=== PATIENT | female | born 1950 | race Caucasian/White ===

== ENCOUNTER 2017-09-30 09:25 | Observation (INO) ==
[2017-09-30] MEDS ORDERED: Aspirin 81 MG TAB.CHEW PO ONE (09:29)
[2017-09-30] MEDS ORDERED: methylPREDNISolone 125 MG/2 ML VIAL IVP ONE (09:33)
[2017-09-30] MEDS ORDERED: Ipratropium/Albuterol Neb 3 ML IH ONE (09:33)
--- NOTE | 2017-09-30 09:37 | Emergency Department Note ---
Disposition Clinical Impression: COPD exacerbation Chest pain Qualifiers: Chest pain type: unspecified Qualified Code(s): R07.9 - Chest pain, unspecified Disposition: Admitted As Inpatient Condition: Fair Referrals: Marixa Hale CNP [Primary Care Provider] - Forms: ED Satisfaction Letter Time of Disposition: 10:33 Chest Pain HPI - General Chief Complaint: ED Chest Pain Stated Complaint: chest pain Time Seen by Provider: 09/30/17 09:29 Source: patient Mode of arrival: ambulatory Limitations: no limitations Vital Signs Reviewed: Yes Nursing Notes Reviewed: Yes - History of Present Illness HPI Narrative: 67-year-old female history COPD comes in complaining of chest pain with pressure in her chest for the last couple of days. Also states she's had some shortness of breath she took prednisone and breathing treatment at home without improvement. Pt complaint: chest pain Onset (ago): day(s) Duration: intermittent Onset: during rest Pain Location: substernal, left chest Severity: moderate Severity scale (1-10): 9 Quality: tightness, aching, heaviness Pain Radiation: none Worsens with: exertion Context: recent illness Associated symptoms: Reports: dyspnea Treatments prior to arrival chest pain: none - Related Data Home Medications Medication Instructions Recorded Confirmed Albuterol Neb [Proventil Neb] 2.5 mg IH Q4HR 08/26/16 11/06/16 Albuterol Sulfate [Proair Hfa] 1 - 2 puff IH Q4H PRN 08/26/16 11/06/16 Aspirin [Lo-Dose Aspirin EC] 81 mg PO DAILY 08/26/16 11/06/16 Citalopram Hydrobromide [Celexa] 20 mg PO DAILY 08/26/16 11/06/16 Losartan [Cozaar] 25 mg PO QPM 08/26/16 11/06/16 Metoprolol [Lopressor] 25 mg PO BID 08/26/16 11/06/16 Oxygen 2 l NS AD 08/26/16 11/06/16 Pantoprazole Sodium [Protonix] 40 mg PO QPM 08/26/16 11/06/16 Simvastatin [Zocor] 20 mg PO QPM 08/26/16 11/06/16 Gabapentin [Neurontin] 300 mg PO HS 11/06/16 11/06/16 Sucralfate [Carafate] 1 gm PO BID 11/06/16 11/06/16 Allergies Allergy/AdvReac Type Severity Reaction Status Date / Time Bee Pollen Allergy Anaphylaxis Verified 09/30/17 09:29 mushroom Allergy Anaphylaxis Verified 09/30/17 09:29 Penicillins [PCN] Allergy Swelling Verified 09/30/17 09:29 of Lip/Tongue/Throat Tomato Allergy Anaphylaxis Verified 09/30/17 09:29 All systems ED: reviewed and negative except as stated. Constitutional: Denies: fever, chills, weakness, weight change Eyes: Denies: eye pain, eye discharge, vision change ENT ED: Denies: ear pain, throat pain, dental pain, hearing loss, epistaxis, congestion, dysphagia Cardiovascular: Reports: chest pain. Denies: palpitations, dyspnea on exertion , edema, syncope Respiratory: Reports: cough, dyspnea, wheezes. Denies: hemoptysis, stridor Gastrointestinal: Denies: abdominal pain, nausea, vomiting, diarrhea, constipation, hematemesis, melena, hematochezia Genitourinary: Denies: dysuria, frequency, hematuria, discharge Musculoskeletal: Denies: back pain, neck pain, arthralgia, myalgia Integumentary: Denies: rash, abrasion, lesions Neurological: Denies: headache, weakness, numbness, paresthesias, confusion, abnormal gait, vertigo Psychiatric: Denies: anxiety, depression, suicidal thoughts, homicidal thoughts , auditory hallucinations, visual hallucinations Endocrine: Denies: fatigue Hematological/Lymphatic: Denies: easy bleeding, easy bruising Allergic/Immunologic: Denies: facial swelling, urticaria Chest Pain PMH - Past Medical History Medical history: Reports: COPD, coronary artery disease, hyperlipidemia, hypertension, kidney stones, other Surgical history: Reports: other Psychiatric history: Reports: anxiety, depression - Social History Smoking Status: Current every day smoker Alcohol use: Reports: none Drug use: Reports: marijuana Physical Exam - General Limitations: no limitations General appearance: alert, in no apparent distress - Head Head exam: atraumatic, normocephalic, normal inspection - Eye Eye exam: Present: normal appearance, PERRL, EOMI - ENT ENT exam: normal exam, normal oropharynx, mucous membranes moist - Neck Neck exam: Present: normal inspection, full ROM, trachea midline - Chest Chest inspection: Present: normal inspection, symmetric chest wall rise - Respiratory Respiratory exam: Present: wheezes, accessory muscle use, prolonged expiratory phase - Cardiovascular Cardiovascular exam: Present: regular rate, normal rhythm, normal heart sounds - Abdominal Exam Abdominal exam: Present: soft, Non-Tender. Absent: tenderness, distention, guarding, rebound, rigidity - Extremities Exam Extremities exam: Present: normal inspection, full ROM. Absent: tenderness, pedal edema - Expanded Lower Extremity Exam Neurovascular/Tendon exam: Absent: motor deficit, sensory deficit, tendon deficit Gait: observed and normal - Back Exam Back exam: Present: normal inspection, full ROM. Absent: tenderness - Neurological Exam Neurological exam: Present: alert, oriented X3 - Psychiatric Psychiatric exam: Present: normal affect, normal mood - Skin Skin exam: Present: warm, dry, intact, normal color Course - Reevaluation(s) Reevaluation #1: 67-year-old with a history of COPD comes in with chest pain and some difficulty breathing. Initial EKG shows nonspecific changes and PVCs. Initial troponin is negative. Patient will be admitted for rule out and COPD exacerbation. Time: 10:13 - Consultations Consultation #1: Discussed with Dr. Reyna, admit. Time: 10:33 Vital Signs Temperature 98.4 F 09/30/17 09:25 Pulse Rate 58 09/30/17 09:25 Respiratory Rate 18 09/30/17 09:25 Blood Pressure 138/68 09/30/17 09:25 O2 Sat by Pulse Oximetry 99 09/30/17 09:25 Temperature 98.4 F 09/30/17 09:25 Pulse Rate 70 09/30/17 09:58 Respiratory Rate 18 09/30/17 09:58 Blood Pressure 159/76 09/30/17 09:58 O2 Sat by Pulse Oximetry 98 09/30/17 09:58 Oxygen Delivery Oxygen Delivery Room Air Chest Pain - Lab Data Result diagrams: 09/30/17 09:43 09/30/17 09:43 Lab Results 09/30/17 09/30/17 09/30/17 Range/Units 09:43 09:43 09:43 WBC 11.6 H (4.3-11.1) K/mcL RBC 5.11 H (3.82-4.97) M/mcL Hgb 14.0 (11.5-15.4) g/dL Hct 44.9 (35.3-44.9) % MCV 87.9 (83.0-100.0) fL MCH 27.4 L (28.0-33.3) pg MCHC 31.2 L (31.6-35.5) g/dL RDW 14.7 H (11.5-14.5) % Plt Count 307 (140-400) K/mcL MPV 9.1 L (9.4-12.4) fL Immature Gran % 0.3 (0-4) % Seg Neutrophils % 57.4 % Lymphocytes % 35.3 % Monocytes % 5.5 % Eosinophils % 1.0 % Basophils % 0.5 % Neutrophils # 6.6 (1.6-8.9) K/mcL Lymphocytes # 4.1 (0.6-4.6) K/mcL Monocytes # 0.6 (0.0-1.3) K/mcL Eosinophils # 0.1 (0.0-0.6) K/mcL Basophils # 0.1 (0.0-0.2) K/mcL Nucleated RBCs/100 WBC 0.2 H (0) /100 WBC PT 10.3 (9.4-12.1) Seconds INR 1.0 APTT 27.5 (26.0-36.0) Seconds Sodium 136 (136-145) mEq/L Potassium 4.0 (3.5-5.1) mEq/L Chloride 106 (98-107) mEq/L Carbon Dioxide 27 (23-29) mEq/L BUN 15 (8-23) mg/dL Creatinine 0.90 (0.60-1.20) mg/dL Est GFR ( Amer) > 60 (> 60) Est GFR (Non-Af Amer) > 60 (> 60) BUN/Creatinine Ratio 17 (6-26) Glucose 108 H (70-105) mg/dL Calculated Osmolality 283 (280-300) Lactic Acid (0.5-2.2) mmol/L Calcium 9.1 (8.6-10.3) mg/dL Troponin I (< 0.04) ng/mL 09/30/17 09/30/17 Range/Units 09:43 09:43 WBC (4.3-11.1) K/mcL RBC (3.82-4.97) M/mcL Hgb (11.5-15.4) g/dL Hct (35.3-44.9) % MCV (83.0-100.0) fL MCH (28.0-33.3) pg MCHC (31.6-35.5) g/dL RDW (11.5-14.5) % Plt Count (140-400) K/mcL MPV (9.4-12.4) fL Immature Gran % (0-4) % Seg Neutrophils % % Lymphocytes % % Monocytes % % Eosinophils % % Basophils % % Neutrophils # (1.6-8.9) K/mcL Lymphocytes # (0.6-4.6) K/mcL Monocytes # (0.0-1.3) K/mcL Eosinophils # (0.0-0.6) K/mcL Basophils # (0.0-0.2) K/mcL Nucleated RBCs/100 WBC (0) /100 WBC PT (9.4-12.1) Seconds INR APTT (26.0-36.0) Seconds Sodium (136-145) mEq/L Potassium (3.5-5.1) mEq/L Chloride (98-107) mEq/L Carbon Dioxide (23-29) mEq/L BUN (8-23) mg/dL Creatinine (0.60-1.20) mg/dL Est GFR ( Amer) (> 60) Est GFR (Non-Af Amer) (> 60) BUN/Creatinine Ratio (6-26) Glucose (70-105) mg/dL Calculated Osmolality (280-300) Lactic Acid 1.8 (0.5-2.2) mmol/L Calcium (8.6-10.3) mg/dL Troponin I < 0.03 (< 0.04) ng/mL - EKG Data EKG attestation: Yes I reviewed and interpreted this EKG. EKG shows normal: sinus rhythm Rhythm: NSR, PVC's [place]/QRS: normal Interpretation: nonspecific ST-T wave changes Heart Score - Score History: Slightly Suspicious EKG: Non Specific repolarisation Disturbance Age: 45-65 Risk Factors: Equal/Greater than 3 risk factor or history of atherosclerotic disease Troponin: Less than normal limit HEART Score Total: 4
[2017-09-30 09:54] LABS: Basophils # 0.1 K/mcL (0.0-0.2); Basophils % 0.5 %; Eosinophils # 0.1 K/mcL (0.0-0.6); Hematocrit 44.9 % (35.3-44.9); Immature Granulocytes % 0.3 % (0-4); Lymphocytes # 4.1 K/mcL (0.6-4.6); Lymphocytes % 35.3 %; Mean Corpuscular HGB Conc 31.2 g/dL (31.6-35.5); Mean Corpuscular Hemoglobin 27.4 pg (28.0-33.3); Mean Corpuscular Volume 87.9 fL (83.0-100.0); Mean Platelet Volume 9.1 fL (9.4-12.4); Monocytes # 0.6 K/mcL (0.0-1.3); Monocytes % 5.5 %; Neutrophils # 6.6 K/mcL (1.6-8.9); Nucleated Red Blood Cells 0.2 /100 WBC (0); Platelet Count 307 K/mcL (140-400); Red Blood Count 5.11 M/mcL (3.82-4.97); Red Cell Distribution Width 14.7 % (11.5-14.5); Segmented Neutrophils % 57.4 %
[2017-09-30 09:58] LABS: Prothrombin Time 10.3 Seconds (9.4-12.1)
[2017-09-30 10:00] LABS: Activated Partial Thrombo Time 27.5 Seconds (26.0-36.0)
[2017-09-30 10:07] LABS: BUN/Creatinine Ratio 17 (6-26); Blood Urea Nitrogen 15 mg/dL (8-23); Calcium 9.1 mg/dL (8.6-10.3); Carbon Dioxide 27 mEq/L (23-29); Chloride 106 mEq/L (98-107); Glucose 108 mg/dL (70-105); Osmolality,Calculated 283 (280-300); Sodium 136 mEq/L (136-145); eGFR For African Americans > 60 (> 60); eGFR For Non-African Americans > 60 (> 60)
[2017-09-30] MEDS ORDERED: Ondansetron 4 MG/2 ML VIAL IVP PRN (13:02)
[2017-09-30] MEDS ORDERED: Acetaminophen 325 MG TABLET PO PRN (13:02)
[2017-09-30] MEDS ORDERED: Naloxone 0.4 MG/ML INJ IVP PRN (13:02)
--- NOTE | 2017-09-30 13:25 | Internal Med History&Physical ---
<Sandra Gabriel - Last Filed: 09/30/17 13:51> Date of Encounter: 09/30/17 Time of Encounter: 13:12 Assessment and Plan (1) Chest pain Status: Acute Chest pain - Has history of CAD and risk factor for CAD including hypertension and hyperlipidemia. - Symptoms not typical for CAD. - Troponins negative 1 and EKG without acute ST-T change. Chest x-ray is normal. - Low risk for ACS. - We will continue trending troponin for 3 more sets. EKG as needed. Telemetry monitoring. - If everything continues to be normal, expect to be discharged in the morning. Qualifiers: Chest pain type: unspecified Qualified Code(s): R07.9 - Chest pain, unspecified (2) Acute bronchitis Status: Acute Acute bronchitis - History of smoking and COPD. - Cough with white mucus. - Symptoms typical for acute bronchitis. - Will add Zithromaz. Sputum culture. Qualifiers: Bronchitis organism: unspecified organism Qualified Code(s): J20.9 - Acute bronchitis, unspecified (3) CAD (coronary artery disease) Status: Chronic CAD - Stable at this time - Continue current treatment for hypertension and hyperlipidemia. Qualifiers: Coronary Disease-Associated Artery/Lesion type: circle artery [place] vs. transplanted heart: circle heart Associated angina: with stable angina Qualified Code(s): I25.118 - Atherosclerotic heart disease of circle coronary artery with other forms of angina pectoris (4) HTN (hypertension) Status: Chronic Hypertension - Stable, continue current treatment Qualifiers: Hypertension type: essential hypertension Qualified Code(s): I10 - Essential (primary) hypertension (5) Hyperlipidemia Status: Acute Stable. Continue current treatment. Qualifiers: Hyperlipidemia type: pure hypercholesterolemia Qualified Code(s): E78.00 - Pure hypercholesterolemia, unspecified; E78.0 - Pure hypercholesterolemia (6) COPD exacerbation Status: Chronic - Stable continue home medicine. Internal Medicine - H&P: HPI Admitted From: Emergency Dept Plans for Post Hospital Care: Home History of present illness: Ms. Marcelo is a 67 year old female who has past medical history significant for hypertension, coronary artery disease, HLP, COPD who presents with chest pain with cough for 2 days. She was on her usual health state until 2 days ago, she experienced gradual onset chest pain, she states that her chest pains are located on the precordial area with radiation to the left arm and left jaw. pAIN was worsened by exertion and relieved by rest. She rated 5 out of 10. She also has associated cough with white mucus. she denies fever or night sweats. No headache, dizziness, weakness. She denies abdominal pain but admitted nausea and vomiting occasionally. she denies dysuria, frequency, or urgency. At ED, vital signs were stable. Laboratory results revealed mild leukocytosis and a slightly elevated glucose. EKG is unremarkable and a chest x-ray was normal upon report. She received breathing treatment in the ED and she reports her symptoms has relieved. She does have past medical history lives CAD hypertension and COPD she does compliant with his treatment she also has primary care physician and registered nurse cardiovascular icu whom she is sedated regularly to follow follow-up. with. Review of systems Gen: the patient complained fatigue. But no weight loss OR change HEENT: she denies vision or hearing change. Cardiovascular: She does have chest chest pressure and discomfort no palpitation .see history of present illness . Respiratory: Denies hemoptysis . See history of present illness Gastro-intestinal: no bloody stool. See history of present illness. : See history of present illness. Neurological: see history of present illness Past Med Surg Social Fam HX - Past Medical History Medical history: COPD, coronary artery disease, hyperlipidemia, hypertension, kidney stones, other Psychiatric history: anxiety, depression - Past Surgical History Surgical History: vascular surgery - Social History Smoking Status: Current every day smoker Packs per day: 1 Smokeless Tobacco Status: No Alcohol use: none Drug use: none - Family History Mother Living Status: Age at : 84 Cause of : respiratory Hx Family Cardiac Disorders: No Hx Family Respiratory Disorders: Yes Internal Medicine - H&P: Meds Albuterol Neb [Proventil Neb] 2.5 mg IH Q4HR 08/26/16 [History] Albuterol Sulfate [Proair Hfa] 1 - 2 puff IH Q4H PRN 08/26/16 [History] Aspirin [Lo-Dose Aspirin EC] 81 mg PO DAILY 08/26/16 [History] Losartan [Cozaar] 25 mg PO QPM 08/26/16 [History] Metoprolol [Lopressor] 25 mg PO BID 08/26/16 [History] Oxygen 2 l NS AD 08/26/16 [History] Pantoprazole Sodium [Protonix] 40 mg PO QPM 08/26/16 [History] Simvastatin [Zocor] 20 mg PO QPM 08/26/16 [History] Gabapentin [Neurontin] 300 mg PO HS 11/06/16 [History] Citalopram Hydrobromide [Celexa] 40 mg PO DAILY 09/30/17 [History] Tiotropium [Spiriva] 1 puff IH DAILY 09/30/17 [History] Azithromycin [Azithromycin 6-Tab Pack] 250 mg PO PER PKG DI #6 tab 10/03/17 [Rx] GuaiFENesin ER [Mucinex] 1,200 mg PO BID #14 tbbp.12hr 10/03/17 [Rx] GuaiFENesin Liq [Robitussin Liq] 200 mg PO Q6HR PRN #500 ml 10/03/17 [Rx] predniSONE [PredniSONE] 40 mg PO DAILY #6 tablet 10/03/17 [Rx] 3 Allergy/AdvReac Type Severity Reaction Status Date / Time Bee Pollen Allergy Anaphylaxis Verified 09/30/17 09:29 mushroom Allergy Anaphylaxis Verified 09/30/17 09:29 Penicillins [PCN] Allergy Swelling Verified 09/30/17 09:29 of Lip/Tongue/Throat Tomato Allergy Anaphylaxis Verified 09/30/17 09:29 All Systems PM: A 10-system review of systems was performed and is negative for pertinent findings except as documented above in the HPI. - Constitutional Vitals: Temp Pulse Resp BP Pulse Ox 98.4 F 70 18 134/89 98 09/30/17 11:21 09/30/17 09:58 09/30/17 11:21 09/30/17 11:21 09/30/17 09:58 General appearance: Present: A&O X 3 - Head Head exam: Present: normal inspection - Eye Eye exam: Present: PERRL - Neck Neck exam general surgery: Present: full ROM - Respiratory Respiratory exam: Present: chest wall tenderness, rhonchi - Cardiovascular Cardiovascular exam: Present: RRR, +S1, +S2 - GI/Abdominal GI/Abdominal exam: Present: hyperactive bowel sounds, normal bowel sounds, soft - Neurological Exam Neurological exam: Present: abnormal gait, alert, oriented X3 Internal Med - H&P Results - Labs CBC & Chem 7: 09/30/17 09:43 09/30/17 09:43 - EKG Data EKG shows normal: sinus rhythm <Vickie Cancino - Last Filed: 10/31/17 09:46> Date of Encounter: 10/31/17 Internal Medicine - H&P: HPI History of present illness: Ms. Marcelo is a 67 year old female All Systems PM: A 10-system review of systems was performed and is negative for pertinent findings except as documented above in the HPI. - Constitutional Vitals: Temp Pulse Resp BP Pulse Ox 98.3 F 77 18 127/78 90 10/03/17 10:44 10/03/17 10:44 10/03/17 10:44 10/03/17 10:44 10/03/17 10:44 Internal Med - H&P Results - Labs CBC & Chem 7: 10/01/17 00:43 10/01/17 00:43 - Impressions ITS Impressions Chest CT 10/01/17 12:15 IMPRESSION: 1. No acute intrapulmonary findings. 2. Mild emphysema. 3. Small 3 mm subpleural nodule within the anterior right upper lobe, new from the prior exam. While this likely reflects a benign granuloma, further follow-up of this nodule is as advised below. 4. Bilateral adrenal adenomas. RECOMMENDATIONS: Fleischner Society guidelines for follow-up and management of incidentally detected pulmonary nodules: Single Solid Nodule: Nodule size less than 6 mm In a low-risk patient, no routine follow-up. In a high-risk patient, optional CT at 12 months. - Low risk patients include individuals with minimal or absent history of smoking and other known risk factors. - High risk patients include individuals with a history or smoking or known risk factors. Radiology 2017 http://pubs.rsna.org/doi/full/10.1148/radiol.3929317002 D/ / 10/01/2017 12:57:10 Tha Coleman MD / albino Interpreting Provider: Tha Coleman MD - Attending Attestation I personally and independently interviewed and examined the patient with FLEET SALESPERSON, and I reviewed the patient's medical record with her. I am in agreement with the assessment and proposed treatment plan. I discussed my findings and recommendation with the patient and answer all questions. The patient's medical records were edited to accurately reflect this encounter.
[2017-09-30] MEDS: Azithromycin 250 MG TABLET PO SCH (14:16)
[2017-09-30] MEDS: Albuterol 2.5 MG/3 ML NEBULIZER IH SCH ×2 (16:03→20:46)
--- NOTE | 2017-09-30 17:04 | Electrocardiograph Report ---
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
[2017-09-30] MEDS: *HR* Heparin 5,000 UNIT/ML VIAL SQ SCH (21:38)
[2017-09-30] MEDS: Gabapentin 300 MG CAPSULE PO SCH (21:39)
[2017-10-01] MEDS: Albuterol 2.5 MG/3 ML NEBULIZER IH SCH ×7 (00:05→23:00)
[2017-10-01 01:29] LABS: Hematocrit 39.7 % (35.3-44.9); Hemoglobin 12.7 g/dL (11.5-15.4); Mean Corpuscular Volume 87.4 fL (83.0-100.0); Mean Platelet Volume 9.6 fL (9.4-12.4); Red Blood Count 4.54 M/mcL (3.82-4.97); Red Cell Distribution Width 14.9 % (11.5-14.5)
[2017-10-01 01:47] LABS: BUN/Creatinine Ratio 19 (6-26); Blood Urea Nitrogen 16 mg/dL (8-23); Calcium 9.4 mg/dL (8.6-10.3); Carbon Dioxide 27 mEq/L (23-29); Chloride 105 mEq/L (98-107); Glucose 127 mg/dL (70-105); Osmolality,Calculated 287 (280-300); Potassium 5.1 mEq/L (3.5-5.1); Sodium 137 mEq/L (136-145); eGFR For African Americans > 60 (> 60); eGFR For Non-African Americans > 60 (> 60)
[2017-10-01] MEDS: *HR* Heparin 5,000 UNIT/ML VIAL SQ SCH ×3 (05:55→20:15)
[2017-10-01] MEDS: Tiotropium 18 MCG inhalation IH SCH (08:25)
[2017-10-01] MEDS: Aspirin Enteric Coated 81 MG Tablet PO SCH (09:53)
[2017-10-01] MEDS: Azithromycin 250 MG TABLET PO SCH (09:54)
[2017-10-01] MEDS ORDERED: ALPRAZolam 0.5 MG TABLET PO ONE (11:38)
[2017-10-01 13:42] LABS: Adenovirus Not Detected (Not Detect); Bordetella Pertussis Not Detected (Not Detect); Chlamydophila pneumoniae Not Detected (Not Detect); Coronavirus 229E Not Detected (Not Detect); Coronavirus HKU1 Not Detected (Not Detect); Coronavirus NL63 Not Detected (Not Detect); Coronavirus OC43 Not Detected (Not Detect); Human Metapneumovirus Not Detected (Not Detect); Human Rhinovirus/Enterovirus ***DETECTED*** (Not Detect); Influenza A Subtype 2009 H1 Not Detected (Not Detect); Influenza A Untypeable Not Detected (Not Detect); Influenza B Not Detected (Not Detect); Mycoplasma pneumoniae Not Detected (Not Detect); Parainfluenza Virus 1 Not Detected (Not Detect); Parainfluenza Virus 2 Not Detected (Not Detect); Parainfluenza Virus 3 Not Detected (Not Detect); Parainfluenza Virus 4 Not Detected (Not Detect); Respiratory Syncytial Virus Not Detected (Not Detect)
--- NOTE | 2017-10-01 15:47 | Internal Med Progress Note ---
Date of Encounter: 10/01/17 Time of Encounter: 15:45 - Assessment and plan (1) COPD exacerbation Current Visit: Yes Status: Chronic Assessment and plan: Symptomatic with shortness of breath, productive cough and diffuse wheezing. CXR nonacute. Chest CT with known pulmonary nodules, no evidence of pneumonia. Recently treated with ATB and by mouth steroids per PCP. Escalate ATB to IV azithromycin, ceftriaxone. UV steroids, DuoNeb's. Resp PCR, urinary antigens and sputum culture pending. (2) Chest pain Current Visit: Yes Status: Acute Assessment and plan: Presented with chest heaviness that was worse with deep inspiration, cough. Serial troponins negative, EKG without acute ST changes. Suspect secondary to acute COPD exacerbation. Continue treating underlying cause no further cardiac workup required at this time. Qualifiers: Chest pain type: unspecified Qualified Code(s): R07.9 - Chest pain, unspecified (3) HTN (hypertension) Current Visit: Yes Status: Chronic Assessment and plan: per hx. BP controlled. Cont home BP medications. Monitor BP and titrate PRN Qualifiers: Hypertension type: essential hypertension Qualified Code(s): I10 - Essential (primary) hypertension (4) Lung nodule Current Visit: Yes Status: Acute Assessment and plan: Chest CT with 3 mL subpleural nodule and right upper lobe. Will need repeat chest CT at 12 months as she has high risk patient with tobacco use. (5) DVT prophylaxis Current Visit: Yes Status: Acute Assessment and plan: heparin - Time Spent With Patient 25 - 35 minutes - Subjective Interval history: Seen and examined at bedside. Patient is new to me, information obtained from chart review and patient report. Patient says she has felt sick with upper respiratory symptoms for the past 2 months. Recently started on antibiotics and steroids by her PCP with no improvement. Still with shortness of breath its worse with exertion and productive cough. No chest pain. - Constitutional Vitals: Temp Pulse Resp BP Pulse Ox 98 F 67 14 129/55 99 10/01/17 06:44 10/01/17 10:45 10/01/17 10:45 10/01/17 10:45 10/01/17 10:45 General appearance: Present: A&O X 3, no acute distress - Head Head exam: Present: atraumatic, normocephalic - Eye Eye exam: Present: PERRL, conjuntiva pink, sclera anicteric Pupils: Present: PERRL - Neck Neck exam general surgery: Present: supple, trachea midline. Absent: lymphadenopathy - Respiratory Respiratory exam: Present: rhonchi, wheezes. Absent: accessory muscle use, rales - Cardiovascular Cardiovascular exam: Present: RRR, +S1, +S2. Absent: diastolic murmur, gallop, rubs, systolic murmur - GI/Abdominal GI/Abdominal exam: Present: normal bowel sounds, soft, no peritoneal signs. Absent: distended, tenderness - Extremities Exam Extremities exam: Present: warm, radial pulses palpable and symmetrical. Absent : calf tenderness, cyanotic, pedal edema - Neurological Exam Neurological exam: Present: CN II-XII intact, oriented X3, no focal deficits. Absent: pronater drift, facial droop, speech deficit - Skin Skin exam: Present: dry, intact Internal Medicine: Result - Labs CBC & Chem 7: 10/01/17 00:43 10/01/17 00:43 Labs: Short CBC 10/01/17 Range/Units 00:43 WBC 9.6 (4.3-11.1) K/mcL Hgb 12.7 (11.5-15.4) g/dL Hct 39.7 (35.3-44.9) % Plt Count 290 (140-400) K/mcL BMP 10/01/17 00:43 Sodium 137 Potassium 5.1 D Chloride 105 Carbon Dioxide 27 BUN 16 Creatinine 0.84 Glucose 127 H Calcium 9.4 Cardiac Enzymes 09/30/17 10/01/17 Range/Units 19:09 00:43 Troponin I < 0.03 < 0.03 (< 0.04) ng/mL - ABG Interpretation ABG results: PT/INR, D-dimer PT 10.3 Seconds (9.4-12.1) 09/30/17 09:43 - Impressions Impressions Chest CT 10/01/17 12:15 IMPRESSION: 1. No acute intrapulmonary findings. 2. Mild emphysema. 3. Small 3 mm subpleural nodule within the anterior right upper lobe, new from the prior exam. While this likely reflects a benign granuloma, further follow-up of this nodule is as advised below. 4. Bilateral adrenal adenomas. RECOMMENDATIONS: Fleischner Society guidelines for follow-up and management of incidentally detected pulmonary nodules: Single Solid Nodule: Nodule size less than 6 mm In a low-risk patient, no routine follow-up. In a high-risk patient, optional CT at 12 months. - Low risk patients include individuals with minimal or absent history of smoking and other known risk factors. - High risk patients include individuals with a history or smoking or known risk factors. Radiology 2017 http://pubs.rsna.org/doi/full/10.1148/radiol.6537987317 D/ / 10/01/2017 12:57:10 Tha Coleman MD / albino Interpreting Provider: Tha Coleman MD Consult Discharge Plan - Plan Referrals: Marixa Hale, JEFFY [Primary Care Provider] -
[2017-10-01] MEDS: cefTRIAXone 1,000 MG in Water for inj. (sterile) 20 ML 10 ML IVP SCH (18:06)
[2017-10-01] MEDS: Azithromycin 500 MG in D5% in Water 250 ML IVPB SCH (18:07)
[2017-10-01] MEDS: Gabapentin 300 MG CAPSULE PO SCH (20:15)
[2017-10-02] MEDS: Albuterol 2.5 MG/3 ML NEBULIZER IH SCH ×6 (03:49→23:05)
[2017-10-02] MEDS: *HR* Heparin 5,000 UNIT/ML VIAL SQ SCH ×3 (06:06→20:54)
[2017-10-02] MEDS: Tiotropium 18 MCG inhalation IH SCH (08:08)
[2017-10-02] MEDS: Aspirin Enteric Coated 81 MG Tablet PO SCH (09:19)
[2017-10-02] MEDS: Azithromycin 250 MG TABLET PO SCH (09:20)
[2017-10-02] MEDS ORDERED: ALPRAZolam 0.5 MG TABLET PO ONE (11:25)
[2017-10-02] MEDS: Azithromycin 500 MG in D5% in Water 250 ML IVPB SCH (15:20)
[2017-10-02] MEDS: cefTRIAXone 1,000 MG in Water for inj. (sterile) 20 ML 10 ML IVP SCH (15:20)
--- NOTE | 2017-10-02 16:40 | Internal Med Progress Note ---
Date of Encounter: 10/02/17 Time of Encounter: 16:38 - Assessment and plan (1) COPD exacerbation Current Visit: Yes Status: Chronic Assessment and plan: Symptomatic with shortness of breath, productive cough and diffuse wheezing. CXR nonacute. Chest CT with known pulmonary nodules, no evidence of pneumonia. Recently treated with ATB and by mouth steroids per PCP. Resp PCR with rhinovirus, urinary antigens and sputum culture negative. Escalate ATB to IV azithromycin, ceftriaxone. IV steroids, DuoNeb's. (2) Chest pain Current Visit: Yes Status: Acute Assessment and plan: Presented with chest heaviness that was worse with deep inspiration, cough. Serial troponins negative, EKG without acute ST changes. Suspect secondary to acute COPD exacerbation. Continue treating underlying cause no further cardiac workup required at this time. Qualifiers: Chest pain type: unspecified Qualified Code(s): R07.9 - Chest pain, unspecified (3) HTN (hypertension) Current Visit: Yes Status: Chronic Qualifiers: Hypertension type: essential hypertension Qualified Code(s): I10 - Essential (primary) hypertension (4) Lung nodule Current Visit: Yes Status: Acute Assessment and plan: Chest CT with 3 mL subpleural nodule and right upper lobe. Will need repeat chest CT at 12 months as she has high risk patient with tobacco use. (5) DVT prophylaxis Current Visit: Yes Status: Acute Assessment and plan: heparin - Subjective Interval history: Seen and examined at bedside. Still with shortness of breath and productive cough but overall improved. She thinks these were more night in the hospital, does not feel like she can go home today. Feels anxious and jittery requesting something to help her relax. No chest pain - Constitutional Vitals: Temp Pulse Resp BP Pulse Ox 98.0 F 57 18 103/56 95 10/02/17 15:39 10/02/17 15:39 10/02/17 15:41 10/02/17 15:39 10/02/17 15:41 General appearance: Present: A&O X 3, no acute distress - Head Head exam: Present: atraumatic, normocephalic - Eye Eye exam: Present: PERRL, conjuntiva pink, sclera anicteric Pupils: Present: PERRL - Neck Neck exam general surgery: Present: supple, trachea midline. Absent: lymphadenopathy - Respiratory Respiratory exam: Present: CTAB, rhonchi, wheezes. Absent: accessory muscle use , rales - Cardiovascular Cardiovascular exam: Present: RRR, +S1, +S2. Absent: diastolic murmur, gallop, rubs, systolic murmur - GI/Abdominal GI/Abdominal exam: Present: normal bowel sounds, soft, no peritoneal signs. Absent: distended, tenderness - Extremities Exam Extremities exam: Present: warm, radial pulses palpable and symmetrical. Absent : calf tenderness, cyanotic, pedal edema - Neurological Exam Neurological exam: Present: CN II-XII intact, oriented X3, no focal deficits. Absent: pronater drift, facial droop, speech deficit - Skin Skin exam: Present: dry, intact Internal Medicine: Result - Labs CBC & Chem 7: 10/01/17 00:43 10/01/17 00:43 - ABG Interpretation ABG results: PT/INR, D-dimer PT 10.3 Seconds (9.4-12.1) 09/30/17 09:43 Consult Discharge Plan - Plan Referrals: Marixa Hale CNP [Primary Care Provider] - 10/09/17 10:00 am
[2017-10-02] MEDS: Gabapentin 300 MG CAPSULE PO SCH (20:54)
[2017-10-03] MEDS: Albuterol 2.5 MG/3 ML NEBULIZER IH SCH ×3 (03:35→11:37)
[2017-10-03] MEDS: *HR* Heparin 5,000 UNIT/ML VIAL SQ SCH (06:12)
[2017-10-03] MEDS: Tiotropium 18 MCG inhalation IH SCH (08:16)
[2017-10-03] MEDS: Aspirin Enteric Coated 81 MG Tablet PO SCH (09:34)
[2017-10-03 10:47] VITALS: BP 127/78
[2017-10-03] MEDS ORDERED: GuaiFENesin Liq 200 MG/10 ML UDC PO PRN (11:12)
--- NOTE | 2017-10-03 12:02 | Discharge Summary ---
Date of Encounter: 10/03/17 Time of Encounter: 12:15 - Discharge Diagnosis (1) COPD exacerbation Priority: Primary Status: Acute Comments: Symptomatic with shortness of breath, productive cough and diffuse wheezing. CXR non-acute. Chest CT with known pulmonary nodules, no evidence of pneumonia. Recently treated with ATB and oral steroids per PCP. Resp PCR with rhinovirus, urinary antigens and sputum culture negative. Symptoms significantly improved with IV azithromycin, ceftriaxone, IV steroids, duonebs. Discharge home on azithromycin, steroid burst. Smoking cessation strongly encouraged. Cont home inhalers. (2) Chest pain Priority: Primary Status: Resolved Comments: Presented with chest heaviness that was worse with deep inspiration and cough. Serial troponins negative, EKG without acute ST changes. Likely secondary to acute COPD exacerbation. Declined inpatient stress test, will follow-up with outpatient PCP Qualifiers: Chest pain type: unspecified Qualified Code(s): R07.9 - Chest pain, unspecified (3) HTN (hypertension) Priority: Primary Status: Chronic Comments: per hx. BP controlled. Cont home BP medications Qualifiers: Hypertension type: essential hypertension Qualified Code(s): I10 - Essential (primary) hypertension (4) Lung nodule Priority: Primary Status: Acute Comments: Chest CT with 3 mL subpleural nodule and right upper lobe. Will need repeat chest CT at 12 months as she is considered high risk with tobacco use. - Discharge Medications Prescriptions: GuaiFENesin Liq [Robitussin Liq] 200 mg PO Q6HR PRN #500 ml PRN Reason: Cough Azithromycin [Azithromycin 6-Tab Pack] 250 mg PO PER PKG DI #6 tab GuaiFENesin ER [Mucinex] 1,200 mg PO BID #14 tbbp.12hr predniSONE [PredniSONE] 40 mg PO DAILY #6 tablet Home Medications: Albuterol Neb [Proventil Neb] 2.5 mg IH Q4HR 08/26/16 [History] Albuterol Sulfate [Proair Hfa] 1 - 2 puff IH Q4H PRN 08/26/16 [History] Aspirin [Lo-Dose Aspirin EC] 81 mg PO DAILY 08/26/16 [History] Losartan [Cozaar] 25 mg PO QPM 08/26/16 [History] Metoprolol [Lopressor] 25 mg PO BID 08/26/16 [History] Oxygen 2 l NS AD 08/26/16 [History] Pantoprazole Sodium [Protonix] 40 mg PO QPM 08/26/16 [History] Simvastatin [Zocor] 20 mg PO QPM 08/26/16 [History] Gabapentin [Neurontin] 300 mg PO HS 11/06/16 [History] Citalopram Hydrobromide [Celexa] 40 mg PO DAILY 09/30/17 [History] Tiotropium [Spiriva] 1 puff IH DAILY 09/30/17 [History] Azithromycin [Azithromycin 6-Tab Pack] 250 mg PO PER PKG DI #6 tab 10/03/17 [Rx] GuaiFENesin ER [Mucinex] 1,200 mg PO BID #14 tbbp.12hr 10/03/17 [Rx] GuaiFENesin Liq [Robitussin Liq] 200 mg PO Q6HR PRN #500 ml 10/03/17 [Rx] predniSONE [PredniSONE] 40 mg PO DAILY #6 tablet 10/03/17 [Rx] Allergies/Adverse Reactions: 3 Allergy/AdvReac Type Severity Reaction Status Date / Time Bee Pollen Allergy Anaphylaxis Verified 09/30/17 09:29 mushroom Allergy Anaphylaxis Verified 09/30/17 09:29 Penicillins [PCN] Allergy Swelling Verified 09/30/17 09:29 of Lip/Tongue/Throat Tomato Allergy Anaphylaxis Verified 09/30/17 09:29 Procedures/tests Complete & Pending: Procedures Performed prior 72 hours Category Date Time Status CT chest wo con [CT] Routine Cat Scan 10/01/17 12:15 Completed ECG 12 lead ECG [ECG] Routine Y 09/30/17 13:02 Ordered Date of admission: 09/30/17 10:47 Primary care physician: Marixa Hale CNP Discharging clinician: Sherie Mora Anticipated date of discharge: 10/03/17 - Patient Status Disposition: Home, Self-Care Condition: Good Functional capacity at discharge: independent ambulation Overall status at discharge: patient is progressing back to baseline - Discharge Instructions Instructions: Chronic Obstructive Pulmonary Disease (DC), Azithromycin (By mouth), Prednisone (By mouth), Decongestant/Expectorant (By mouth), How to Stop Smoking (DC), Pulmonary Nodules (DC) Follow Up With: Marixa Hale CNP [Primary Care Provider] - 01/04/18 10:00 am Additional Instructions: A chest CT showed a small 3 mm nodule in the right upper lobe. It is recommended to have a repeat chest CT in one year - Diet and Activity Activity: increase activity as tolerated Diet: advance to your usual diet Interval History: Seen and examined at bedside, says she feels significantly better would like to go home today. Advised her on the importance of smoking cessation and medication compliance. Still will with some shortness of breath that is worse with ambulation but overall significantly improved. She feels wheezing is improved as well. No chest pain Hospital course: See assessment and plan for hospital course - Time Spent with Patient Total time spent providing and/or coordinating discharge services: - Constitutional Vitals: Temp Pulse Resp BP Pulse Ox 98.3 F 77 18 127/78 90 10/03/17 10:44 10/03/17 10:44 10/03/17 10:44 10/03/17 10:44 10/03/17 10:44 General appearance: Present: A&O X 3, no acute distress - Head Head exam: Present: atraumatic, normocephalic - Eye Eye exam: Present: PERRL, conjuntiva pink, sclera anicteric Pupils: Present: PERRL - Neck Neck exam general surgery: Present: supple, trachea midline. Absent: lymphadenopathy - Respiratory Respiratory exam: Present: wheezes (scant wheezing; significantly improved from yesterday's exam). Absent: accessory muscle use, rales, rhonchi - Cardiovascular Cardiovascular exam: Present: RRR, +S1, +S2. Absent: diastolic murmur, gallop, rubs, systolic murmur - GI/Abdominal GI/Abdominal exam: Present: normal bowel sounds, soft, no peritoneal signs. Absent: distended, tenderness - Extremities Exam Extremities exam: Present: warm, radial pulses palpable and symmetrical. Absent : calf tenderness, cyanotic, pedal edema - Neurological Exam Neurological exam: Present: CN II-XII intact, oriented X3, no focal deficits. Absent: pronater drift, facial droop, speech deficit - Skin Skin exam: Present: dry, intact
== END 2017-10-03 13:40 | disposition home or self-care (01) ==
LOC: EMEROO 09:25 → 3BNU 09:25
PROVIDERS: ADMIT Student in an Organized Health Care Education/Training Program; ATTEND Registered Nurse